=== PATIENT | male | born 1970 | race Caucasian/White ===

== ENCOUNTER 2025-02-09 08:27 | Outpatient (CLI) | payer MEDICARE, MEDICAID ==
[~2025-02-09] VITALS: Ht 182.9 cm; Wt 137.4 kg
[2025-02-09] VITALS (7 sets, daily range): BP systolic 100–115; BP diastolic 50–60; PULSE 56–70; O2SAT 97–100
[2025-02-09] MEDS ORDERED: APIX5TAB3 PO (09:19)
[2025-02-09] MEDS ORDERED: FURO-150 (09:19)
[2025-02-09] MEDS ORDERED: CARV6.253 (09:20)
[2025-02-09] MEDS ORDERED: SPIR50TA5 (09:35)
[2025-02-09] MEDS: regadenoson 0.4mg/5ml syringe IV ONE (10:52)
--- NOTE | 2025-02-09 12:41 | RADIOLOGY REPORT ---
Procedure: UT NM [facility] SCAN Exam Date: 02/09/2025 09:59 AM Reason for study/Clinical History: SHORTNESS OF BREATH;HEART FAILURE Comparison Study: None Myocardial Perfusion Study with SPECT Technique: The patient received an intravenous injection of 7.8 mCi of technetium-99m sestamibi while at rest. After a short delay, SPECT tomographic images of the heart were obtained. The patient then went to the stress lab where they received an intravenous infusion of 0.[address] andard protocol. 31.5 mCi of technetium-99m sestamibi was injected intravenously immediately after the start of the lexiscan infusion. Gated SPECT tomographic images of the heart were acquired and processed. Findings: Small reversible inferoapical defect with underlying fixed inferior wall defect End diastolic volume: 157 mL End systolic volume: 59 mL The left ventricular ejection fraction is 63 %. (normal greater than 50%) Impression: Small Reversible inferoapical defect with underlying fixed inferior wall defect. The left ventricular ejection fraction is 63 %.
== END 2025-02-09 23:59 | disposition home or self-care (01) ==
LOC: NM 08:27
PROVIDERS: ATTEND Internal Medicine Interventional Cardiology
DX: I50.9 Heart failure, unspecified (principal); R06.02 Shortness of breath
CPT/HCPCS: 78452; 93017; A9500; J2785